=== PATIENT | female | born 1975 | race Caucasian/White ===

== ENCOUNTER → 2024-12-20 08:33 | Outpatient (CLI) | payer OTHER, SELFPAY ==
[2024-12-20 09:02] LABS: Add Manual Diff / Slide Review NO; Basophils Absolute Auto 0 /uL (0-100); Basophils Percent Auto 0.7 % (0-2); Eosinophils Absolute Auto 300 /uL (0-450); Eosinophils Percent Auto 5.8 % (2-4); Hematocrit 45.7 % (36-46); Hemoglobin 15.9 g/dL (12.0-16.0); Lymphocytes Absolute Auto 1300 /uL (1100-4500); Lymphocytes Percent Auto 23.4 % (25-40); Mean Corpuscular HGB Conc 34.9 % (30-36); Mean Corpuscular Hemoglobin 32.4 PG (26-34); Mean Corpuscular Volume 92.6 fL (80-100); Monocytes Absolute Auto 500 /uL (0-900); Monocytes Percent Auto 8.9 % (3-14); Neutrophils Absolute Auto 3400 /uL (1500-7000); Neutrophils Percent Auto 61.2 % (50-75); Platelet Count 205 X10^3/uL (150-400); Red Blood Cell Count 4.93 X10^6/uL (4.0-5.2); Red Cell Distribution Width 12.9 % (11.6-14.8); White Blood Cell Count 5.6 X10^3/uL (4.5-11.0)
[2024-12-20 09:22] LABS: Alanine Aminotransferase 22 IU/L (<35); Albumin 4.5 g/dL (3.5-5.0); Albumin Globulin Ratio 1.8 (1.0-2.8); Alkaline Phosphatase 61 U/L (38-126); Aspartate Aminotransferase 20 IU/L (14-36); BUN Creatinine Ratio 20.7 (6-22); Bilirubin Total 0.7 mg/dL (0.2-1.3); Blood Urea Nitrogen 18 mg/dL (7-17); Calcium 9.6 mg/dL (8.4-10.2); Carbon Dioxide 23 mmol/L (22-32); Chloride 108 mmol/L (98-107); Cholesterol 189 mg/dL (140-199); Estimated Glomerular Filt Rate > 60 mL/min (>60); Globulin 2.5 g/dL (1.7-4.1); Glucose 113 mg/dL (70-100); HDL Cholesterol 45 mg/dL (40-60); HEMOLYSIS < 15 (0-50); LDL Cholesterol Calculated 120 mg/dL (<100); Potassium 4.3 mmol/L (3.4-5.1); Sodium 137 mmol/L (137-145); Triglycerides 120 mg/dL (35-150)
== END ==
PROVIDERS: PCP Family Medicine; Referring Provider Family Medicine; Visit Provider Family Medicine
DX: Z00.00 Encounter for general adult medical examination without abnormal findings (principal); I10 Essential (primary) hypertension; E78.5 Hyperlipidemia, unspecified
CPT/HCPCS: 36415; 80053; 80061; 85025

== ENCOUNTER → 2024-12-21 16:31 | Outpatient (CLI) | payer OTHER, SELFPAY ==
--- NOTE | 2024-12-21 16:33 | DI.MG.S_ITS ---
MM screening mammo BI: 12/21/2024. BI-RADS: 1 CLINICAL: 49-year old female for bilateral screening mammogram. Tyrer-Cuzick lifetime risk of 7.1%. No personal or first-degree family history of breast cancer. PRIOR EXAMS No prior examinations available. MAMMOGRAPHY TECHNIQUE: 2D and 3D (tomosynthesis) digital mammographic views obtained, with additional images as needed for full coverage. Current study was also evaluated with a Computer Aided Detection (CAD) system. DENSITY C. The breasts are heterogeneously dense, which may obscure small masses. MAMMOGRAPHY FINDINGS Bilateral: No suspicious mass, asymmetry, microcalcification, or other abnormality seen. IMPRESSION: * No evidence of malignancy. RECOMMENDATIONS Bilateral * Annual screening mammography. OVERALL ASSESSMENT CATEGORY BI-RADS-1: Negative. The [employer] recommends annual screening mammography beginning at age 40 for women with average risk of breast cancer. ELECTRONICALLY SIGNED: Fahad Victor M.D. on 12/24/2024 at 09:50:08 AM PT Interpreting Station ID: [id number]
== END ==
PROVIDERS: PCP Family Medicine; Referring Provider Family Medicine; Visit Provider Family Medicine
DX: Z12.31 Encounter for screening mammogram for malignant neoplasm of breast (principal)
CPT/HCPCS: 77063; 77067

== ENCOUNTER 2025-02-04 11:41 | Day surgery (SDC) | payer OTHER, SELFPAY ==
--- NOTE | 2025-02-04 | PATH_ITS ---
[facility] Accession Number: [id number] No. of containers..01 Tissue . 01 Material submitted: . colon - COLON, LEFT POLYP . 01 Diagnosis: COLON, LEFT POLYP: Hyperplastic polyp. STO 02/08/2025 1504 Local . 01 Electronically signed: . Duncan Mcmanus MD, Pathologist NPI- [id number] . 01 Gross description: . COLON, LEFT POLYP: Received in formalin is 1 fragment(s) of christensen, soft tissue measuring 0.6 x 0.5 x 0.4 cm submitted entirely in 1 cassette(s) /LUIS 02/08/2025 1504 Local . 01 Pathologist provided ICD-10: K63.5 . 01 CPT . 469416 Specimen Comment: A courtesy copy of this report has been sent to [phone] Performed at: [address] [facility] [id number] MD Duncan Mcmanus MD Phone: [phone]
[2025-02-04 12:16] VITALS: BP 128/83; PULSE 70; RESP 16; TEMP 36.4; O2SAT 98
[2025-02-04] MEDS: LACTATED RINGERS 1,000 ML 42 ML IV (12:16)
--- NOTE | 2025-02-04 12:36 | P.HP_ITS ---
History of Present Illness History of Present Illness Date Patient Seen: 02/04/25 Chief complaint: Screening Colonoscopy Narrative: For screening colonoscopy [facility] Medical History (Updated 12/06/24 @ 20:10 by Brittni Edgar) Asthma (~2008) Chicken pox (~1987) Vertigo (~2008) Herpes Abnormal Pap smear of cervix (~2009) Cervical cancer Social History Smoking Status: Current every day smoker alcohol intake: current Meds Home Medications and Allergies Home Medications Medication Instructions Recorded Confirmed Type collagen miscellaneous DAILY 12/03/24 12/21/24 History multivitamin 1 tab PO DAILY 12/03/24 12/21/24 History turmeric 1 cap PO DAILY 12/21/24 12/21/24 History Allergies Allergy/AdvReac Type Severity Reaction Status Date / Time aspirin Allergy Severe Swelling Verified 02/04/25 12:09 of Lip/Tongue/Throat Exam Vital Signs (past 8 hours): - 02/04/25 12:16 Temperature 97.5 F L Pulse Rate 70 Respiratory Rate 16 Blood Pressure 128/83 Pulse Oximetry 98 Oxygen Delivery Method Room Air Oxygen Delivery Method Room Air Narrative Exam Narrative: Oropharynx free of lesions Assessment & Plan Assessment & Plan narrative: Need for screening colonoscopy. Risks, benefits, alternatives have been explained. Time-Based Coding :: [TOTAL MINUTES] spent with patient and on the chart (including review of chart, obtaining history, exam, reviewing outside data, placing orders, documenting exam and treatment plan, and counseling patient) on [DATE]. [employer]EE Human Resources Communications Manager Document charge(s): No
--- NOTE | 2025-02-04 12:40 | PM.OP.COLON ---
Operative Date/Time/Diagnoses Date of procedure: 02/04/25 Time of procedure: 13:12 Pre-op diagnosis: See indication and findings Post-op diagnosis: same Procedure & Clinicians Study performed: Colonoscopy Same procedure as scheduled: Yes Indications: 1st screening Surgeon: Celestina Coy Procedure Notes Procedure in detail: After informed consent was obtained the patient was placed in left lateral decubitus position. The video colonoscope was placed in the rectum slowly advanced cecum. Preparation was good. On slow withdrawal mucosa was carefully examined. The scope was removed. The patient tolerated procedure well. Blood loss none Complications none Sedation mac Findings 1. 1.5 cm sessile polyp in the left colon. This was snared and removed with hot cautery. 2. Otherwise negative colonoscopy to cecum Will be in touch regarding the biopsy results as they will determine how soon she gets follow-up colonoscopy
[2025-02-04 13:22] VITALS: BP 113/81; PULSE 75; RESP 22; O2SAT 95
== END 2025-02-04 13:35 | disposition home or self-care (01) ==
PROVIDERS: PCP Family Medicine; Referring Provider Internal Medicine Gastroenterology; Visit Provider Internal Medicine Gastroenterology
PROC: 0DJD8ZZ Inspection of Lower Intestinal Tract, Via Natural or Artificial Opening Endoscopic (ICD-10-PCS; CPT 45378; principal; 2025-02-04 13:00)
DX: Z12.11 Encounter for screening for malignant neoplasm of colon (principal); K63.5 Polyp of colon
CPT/HCPCS: 45384; J2704

== ENCOUNTER → 2025-04-10 13:07 | Outpatient (CLI) | payer OTHER, SELFPAY ==
[2025-04-10 15:35] LABS: TSH w/ Reflex to FT4 3.08 uIU/mL (0.47-4.68)
[2025-04-10 16:27] LABS: Follicle Stimulating Hormone 9.13 mIU/mL
[2025-04-18 06:06] LABS: % Free Progesterone 2.3 % (.); Free Progesterone <0.23 ng/dL (.); Progesterone, Serum <10 ng/dL (.)
[2025-04-21 00:36] LABS: Percent Free Testosterone 2.48 % (0.50-2.80)
== END ==
PROVIDERS: PCP Family Medicine; Referring Provider Family Medicine; Visit Provider Family Medicine
DX: Z13.29 Encounter for screening for other suspected endocrine disorder (principal); N95.1 Menopausal and female climacteric states; N92.6 Irregular menstruation, unspecified
CPT/HCPCS: 36415; 82672; 83001; 84144; 84402; 84403; 84443; 84999